=== PATIENT | male | born 1945 | race Caucasian/White ===

== ENCOUNTER → 2017-07-22 13:47 | Outpatient (CLI) | payer MEDICARE, OTHER, SELFPAY ==
[2017-07-22 15:15] LABS: Alanine Aminotransferase 41 IU/L (21-72); Albumin 4.3 g/dL (3.5-5.0); Albumin Globulin Ratio 1.4 (1.0-2.8); Alkaline Phosphatase 62 U/L (38-126); Aspartate Aminotransferase 28 IU/L (17-59); BUN Creatinine Ratio 21.1 (6-22); Bilirubin Total 0.9 mg/dL (0.2-1.3); Blood Urea Nitrogen 19 mg/dL (9-20); Calcium 9.2 mg/dL (8.4-10.2); Carbon Dioxide 26 mmol/L (22-32); Chloride 101 mmol/L (98-107); Estimated Glomerular Filt Rate > 60.0 mL/min (>60); Glucose 101 mg/dL (80-110); HEMOLYSIS < 15 (0-50); Potassium 3.9 mmol/L (3.4-5.1); Sodium 139 mmol/L (137-145); Total Protein 7.3 g/dL (6.3-8.2)
[2017-07-22 15:28] LABS: Thyroid Stimulating Hormone 2.36 uIU/mL (0.47-4.68)
== END ==
PROVIDERS: PCP Physician Assistant; Visit Provider Internal Medicine Cardiovascular Disease
DX: I48.0 Paroxysmal atrial fibrillation (principal)
CPT/HCPCS: 36415; 80053; 84443

== ENCOUNTER → 2017-10-03 14:08 | Outpatient (CLI) | payer MEDICARE, OTHER, SELFPAY ==
[2017-10-03 15:23] LABS: Add Manual Diff / Slide Review NO; Basophils Percent Auto 0.6 % (0-2); Eosinophils Percent Auto 3.4 % (2-4); Hematocrit 38.9 % (41-53); Hemoglobin 13.2 g/dL (13.5-17.5); Lymphocytes Percent Auto 12.3 % (25-40); Mean Corpuscular HGB Conc 33.9 % (30-36); Mean Corpuscular Hemoglobin 33.1 PG (26-34); Mean Corpuscular Volume 97.5 fL (80-100); Monocytes Percent Auto 10.2 % (3-14); Neutrophils Absolute Auto 5700 /uL (3000-5900); Neutrophils Percent Auto 73.5 % (50-75); Platelet Count 255 X10^3/uL (150-400); Red Cell Distribution Width 15.7 % (11.6-14.8); White Blood Cell Count 7.8 X10^3/uL (4.5-11.0)
[2017-10-03 16:04] LABS: BUN Creatinine Ratio 26.2 (6-22); Blood Urea Nitrogen 34 mg/dL (9-20); Calcium 9.6 mg/dL (8.4-10.2); Carbon Dioxide 38 mmol/L (22-32); Chloride 82 mmol/L (98-107); Glucose 112 mg/dL (80-110); HEMOLYSIS < 15 (0-50); Potassium 2.8 mmol/L (3.4-5.1); Sodium 134 mmol/L (137-145)
== END ==
PROVIDERS: PCP Physician Assistant; Visit Provider Physician Assistant
DX: I48.91 Unspecified atrial fibrillation (principal); E87.6 Hypokalemia; I25.10 Atherosclerotic heart disease of native coronary artery without angina pectoris; Z95.1 Presence of aortocoronary bypass graft
CPT/HCPCS: 36415; 80048; 85025

== ENCOUNTER → 2017-10-10 11:33 | Outpatient (CLI) | payer MEDICARE, OTHER, SELFPAY ==
[2017-10-10 12:17] LABS: BUN Creatinine Ratio 25.8 (6-22); Blood Urea Nitrogen 31 mg/dL (9-20); Calcium 9.7 mg/dL (8.4-10.2); Carbon Dioxide 34 mmol/L (22-32); Chloride 92 mmol/L (98-107); Estimated Glomerular Filt Rate 59.2 mL/min (>60); Glucose 104 mg/dL (80-110); HEMOLYSIS < 15 (0-50); Magnesium 1.8 mg/dL (1.6-2.3); Potassium 4.3 mmol/L (3.4-5.1); Sodium 137 mmol/L (137-145)
== END ==
PROVIDERS: PCP Physician Assistant; Visit Provider Internal Medicine
DX: E87.6 Hypokalemia (principal); I48.1 Persistent atrial fibrillation
CPT/HCPCS: 36415; 80048; 83735

== ENCOUNTER → 2017-10-16 15:12 | Outpatient (CLI) | payer MEDICARE, OTHER, SELFPAY ==
[2017-10-16 16:16] LABS: BUN Creatinine Ratio 16.7 (6-22); Blood Urea Nitrogen 20 mg/dL (9-20); Calcium 8.8 mg/dL (8.4-10.2); Carbon Dioxide 30 mmol/L (22-32); Chloride 97 mmol/L (98-107); Estimated Glomerular Filt Rate 59.2 mL/min (>60); Glucose 100 mg/dL (80-110); HEMOLYSIS < 15 (0-50); Potassium 3.9 mmol/L (3.4-5.1); Sodium 137 mmol/L (137-145)
== END ==
PROVIDERS: Family Provider Physician Assistant; PCP Physician Assistant; Visit Provider Physician Assistant
DX: I10 Essential (primary) hypertension (principal)
CPT/HCPCS: 36415; 80048

== ENCOUNTER → 2017-11-04 12:42 | Outpatient (CLI) | payer MEDICARE, OTHER, SELFPAY ==
[2017-11-04 13:59] LABS: Blood Urea Nitrogen 19 mg/dL (9-20); Calcium 9.4 mg/dL (8.4-10.2); Carbon Dioxide 31 mmol/L (22-32); Chloride 100 mmol/L (98-107); Estimated Glomerular Filt Rate > 60.0 mL/min (>60); Glucose 116 mg/dL (80-110); HEMOLYSIS < 15 (0-50); Magnesium 1.8 mg/dL (1.6-2.3); Potassium 4.5 mmol/L (3.4-5.1); Sodium 141 mmol/L (137-145)
== END ==
PROVIDERS: Family Provider Physician Assistant; PCP Physician Assistant; Visit Provider Physician Assistant
DX: I48.1 Persistent atrial fibrillation (principal)
CPT/HCPCS: 36415; 80048; 83735

== ENCOUNTER → 2018-09-11 15:42 | Outpatient (CLI) | payer MEDICARE, OTHER, SELFPAY ==
--- NOTE | 2018-09-11 | DI.RAD.S_ITS ---
PROCEDURE: XR HAND RT 2V INDICATIONS: arthritic changes TECHNIQUE: 2 views of the hand(s) acquired. COMPARISON: None. FINDINGS: Bones: No fractures or dislocations. Carpal bones are normally aligned. No suspicious bony lesions. Joint space narrowing and periarticular osteophyte formation at the scaphotrapezial and 1st carpometacarpal joints, indicating osteoarthritis. Soft tissues: No suspicious soft tissue calcifications. IMPRESSION: Osteoarthritis. No acute fracture. No osseous lesion. If symptoms and/or clinical suspicion for pathology persist, further assessment with repeat, or advanced imaging (e.g., CT, MRI, or bone scan) may be helpful for further assessment. Dictated by: Nelson Sherwood M.D. on 09/11/2018 at 17:06 Approved by: Nelson Sherwood M.D. on 09/11/2018 at 17:06
--- NOTE | 2018-09-11 | DI.RAD.S_ITS ---
PROCEDURE: XR HAND LT 2V INDICATIONS: arthritic changes TECHNIQUE: 2 views of the hand(s) acquired. COMPARISON: None. FINDINGS: Bones: No fractures or dislocations. Carpal bones are normally aligned. No suspicious bony lesions. Joint space narrowing and periarticular osteophyte formation at the scaphotrapezial and 1st metacarpal joints, indicating osteoarthritis. Soft tissues: No suspicious soft tissue calcifications. IMPRESSION: Osteoarthritis. No acute fracture. No osseous lesion. If symptoms and/or clinical suspicion for pathology persist, further assessment with repeat, or advanced imaging (e.g., CT, MRI, or bone scan) may be helpful for further assessment. Dictated by: Nelson Sherwood M.D. on 09/11/2018 at 17:05 Approved by: Nelson Sherwood M.D. on 09/11/2018 at 17:06
--- NOTE | 2018-09-11 | DI.RAD.S_ITS ---
PROCEDURE: XR SHOULDER LT MIN 2V INDICATIONS: decreased mobility TECHNIQUE: 3 views of the shoulder were acquired. COMPARISON: [facility], , SHOULDER MINIMUM 2 VIEW LEFT, 08/09/2016, 14:22. FINDINGS: Bones: No fractures or dislocations. No suspicious bony lesions. Visualized ribs appear intact. Tendon anchors within the humeral head. Median sternotomy. Aortic and osteophyte formation at the glenohumeral joint. Findings suggestive of distal clavicular resection. Soft tissues: No suspicious soft tissue calcifications. IMPRESSION: Post surgical sequelae. Osteoarthritis. No acute fracture. No osseous lesion. If symptoms and/or clinical suspicion for pathology persist, further assessment with repeat, or advanced imaging (e.g., CT, MRI, or bone scan) may be helpful for further assessment. Dictated by: Nelson Sherwood M.D. on 09/11/2018 at 17:06 Approved by: Nelson Sherwood M.D. on 09/11/2018 at 17:07
[2018-09-11 16:21] LABS: Add Manual Diff / Slide Review NO; Basophils Absolute Auto 100 /uL (0-100); Basophils Percent Auto 1.3 % (0-2); Eosinophils Absolute Auto 300 /uL (0-450); Eosinophils Percent Auto 6.2 % (2-4); Hematocrit 36.2 % (41-53); Hemoglobin 12.4 g/dL (13.5-17.5); Lymphocytes Absolute Auto 700 /uL (1100-4500); Lymphocytes Percent Auto 14.3 % (25-40); Mean Corpuscular HGB Conc 34.2 % (30-36); Mean Corpuscular Hemoglobin 33.8 PG (26-34); Mean Corpuscular Volume 98.8 fL (80-100); Monocytes Absolute Auto 500 /uL (0-900); Monocytes Percent Auto 9.4 % (3-14); Neutrophils Absolute Auto 3300 /uL (1500-7000); Neutrophils Percent Auto 68.8 % (50-75); Platelet Count 222 X10^3/uL (150-400); Red Blood Cell Count 3.66 X10^6/uL (4.5-5.9); Red Cell Distribution Width 15.6 % (11.6-14.8); White Blood Cell Count 4.8 X10^3/uL (4.5-11.0)
[2018-09-11 16:22] LABS: Reticulocyte Count, Percent 1.3 % (0.87-2.60)
[2018-09-11 16:38] LABS: B Type Natriuretic Peptide 173 (<100)
[2018-09-11 17:02] LABS: BUN Creatinine Ratio 22.2 (6-22); Blood Urea Nitrogen 20 mg/dL (9-20); C-Reactive Protein Quant 0.6 mg/dL (<1.0); Calcium 8.8 mg/dL (8.4-10.2); Carbon Dioxide 28 mmol/L (22-32); Chloride 101 mmol/L (98-107); Estimated Glomerular Filt Rate > 60.0 mL/min (>60); Glucose 100 mg/dL (80-110); HEMOLYSIS 15 (0-50); Sodium 137 mmol/L (137-145)
[2018-09-11 17:06] LABS: Erythrocyte Sedimentation Rate 13 MM/HR (0-15)
[2018-09-11 17:12] LABS: Rheumatoid Factor < 8.6 IU/mL (<12.0)
[2018-09-11 17:20] LABS: HEMOLYSIS < 15 (0-50); Iron 60 ug/dL (49-181)
[2018-09-11 17:30] LABS: Percent Iron Saturation 18 % (20-50); Total Iron Binding Capacity 326 ug/dL (261-462); Transferrin 258 mg/dL (206-381)
[2018-09-11 17:34] LABS: Ferritin 28.7 ng/mL (17.9-464)
[2018-09-15 11:47] LABS: CCP Antibody (IgG) < 16 Units (< 20)
== END ==
PROVIDERS: PCP Internal Medicine; Visit Provider Internal Medicine
DX: M18.0 Bilateral primary osteoarthritis of first carpometacarpal joints (principal); M25.512 Pain in left shoulder; D64.9 Anemia, unspecified; I50.9 Heart failure, unspecified
CPT/HCPCS: 36415; 73030; 73120; 80048; 82728; 83540; 83550; 83880; 85025; 85045; 85651; 86140; 86200; 86430

== ENCOUNTER → 2018-10-20 09:03 | Outpatient (CLI) | payer MEDICARE, OTHER, SELFPAY ==
--- NOTE | 2018-10-20 | DI.CT.S_ITS ---
PROCEDURE: CT CHEST WO CON INDICATIONS: STERNAL PAIN TECHNIQUE: Noncontrast 5 mm thick sections acquired from the pulmonary apices to the posterior costophrenic angles. 1 mm lung window, 5 mm thick coronal and sagittal and 7 mm axial MIP reformats were then acquired. For radiation dose reduction, the following was used: automated exposure control, adjustment of mA and/or kV according to patient size. COMPARISON: None. FINDINGS: Image quality: Excellent. Lungs and pleura: There is nodular thickening along left oblique fissure. With masslike consolidation is seen in lateral aspect of the left upper lobe measures 1.9 x 1.8 x 0.7 cm in size series 3 image 153 and series 5 image 43. The 6 mm calcified granuloma is noted in lateral aspect of right upper lobe series 3 image 132 5 mm nodular pleural thickening involving anterior aspect of right upper lobe is seen series 3 image 131. 5 mm subpleural nodule involving anterolateral aspect of right middle lobe is also noted series 3 image 167. 9 mm nodular pleural thickening involving the posterior aspect of left lower lobe near left lung base is seen series 3 image 191. Bibasilar scarring/atelectasis also seen. Subtle 6 mm in subpleural nodular density is seen in posterior aspect of right lung base series 3 image 242. No pleural effusions or pneumothorax. Central and peripheral airways are patent and normal in caliber. Mediastinum: Heart size is enlarged. No pericardial effusion. Median sternotomy wires are seen. Moderate amount of atherosclerotic calcifications are noted in coronary arteries and thoracic aorta. Median sternotomy wires skin MID to distal sternal region and appears fractured with diastases at sternotomy site . No mediastinal adenopathy by size criteria. Small calcified lymph nodes are seen in mediastinum. Thoracic aorta and central pulmonary arteries are normal in size. Esophagus is normal in caliber. No hiatal hernia. Bones and chest wall: No suspicious bony lesions. No vertebral body compression fractures. No axillary or supraclavicular adenopathy by size criteria. Thyroid gland is within normal limits. Abdomen: Visualized upper abdominal solid organs and bowel loops appear normal in the absence of contrast. Scattered calcified granuloma are seen in liver and spleen. Gallbladder is surgically absent IMPRESSION: 1. Prior cardiac surgery with median sternotomy wires seen. There are broken sternotomy wires the mid to distal sternal region with diastases at sternotomy site. No bony erosive changes. No acute fracture or dislocation. No abnormal fluid collection or soft tissue mass. 2. Nodular thickening along oblique fissure with masslike consolidation seen in lateral aspect of left upper lobe measures 1.9 x 1.8 x 0.7 cm in size. Additional subcentimeter nodular densities seen scattered in bilateral lung gonzalez as above. Followup CT study in 3-6 month is recommended for evaluation of stability. 3. Bibasilar atelectasis/scarring. No pleural effusion. Airway is patent. Dictated by: John Hermosillo M.D. on 10/20/2018 at 13:11 Approved by: John Hermosillo M.D. on 10/20/2018 at 13:23
== END ==
PROVIDERS: PCP Internal Medicine; Visit Provider Internal Medicine
DX: R07.89 Other chest pain (principal)
CPT/HCPCS: 71250

== ENCOUNTER → 2018-11-06 14:41 | Outpatient (CLI) | payer MEDICARE, OTHER, SELFPAY | PROVIDERS: PCP Internal Medicine; Visit Provider Internal Medicine | DX: M81.0 Age-related osteoporosis without current pathological fracture (principal); M96.89 Other intraoperative and postprocedural complications and disorders of the musculoskeletal system; Z87.891 Personal history of nicotine dependence | CPT/HCPCS: 77080 ==

== ENCOUNTER → 2018-11-19 11:10 | Outpatient (CLI) | payer MEDICARE, OTHER, SELFPAY ==
[2018-11-19 11:44] LABS: Add Manual Diff / Slide Review NO; Basophils Absolute Auto 0 /uL (0-100); Basophils Percent Auto 0.9 % (0-2); Eosinophils Absolute Auto 200 /uL (0-450); Eosinophils Percent Auto 5.2 % (2-4); Hematocrit 38.3 % (41-53); Hemoglobin 12.9 g/dL (13.5-17.5); Lymphocytes Absolute Auto 700 /uL (1100-4500); Lymphocytes Percent Auto 16.1 % (25-40); Mean Corpuscular HGB Conc 33.6 % (30-36); Mean Corpuscular Hemoglobin 33.4 PG (26-34); Mean Corpuscular Volume 99.2 fL (80-100); Monocytes Absolute Auto 400 /uL (0-900); Monocytes Percent Auto 8.4 % (3-14); Neutrophils Absolute Auto 3200 /uL (1500-7000); Neutrophils Percent Auto 69.4 % (50-75); Platelet Count 252 X10^3/uL (150-400); Red Blood Cell Count 3.86 X10^6/uL (4.5-5.9); Red Cell Distribution Width 14.8 % (11.6-14.8); White Blood Cell Count 4.6 X10^3/uL (4.5-11.0)
[2018-11-19 12:11] LABS: Alanine Aminotransferase 16 IU/L (21-72); Albumin 4.1 g/dL (3.5-5.0); Alkaline Phosphatase 55 U/L (38-126); Aspartate Aminotransferase 21 IU/L (17-59); BUN Creatinine Ratio 26.7 (6-22); Blood Urea Nitrogen 24 mg/dL (9-20); Calcium 9.2 mg/dL (8.4-10.2); Carbon Dioxide 28 mmol/L (22-32); Chloride 99 mmol/L (98-107); Cholesterol 115 mg/dL (140-199); Estimated Glomerular Filt Rate > 60.0 mL/min (>60); Glucose 105 mg/dL (80-110); HDL Cholesterol 49 mg/dL (40-60); HEMOLYSIS < 15 (0-50); LDL Cholesterol Calculated 50 mg/dL (<100); Potassium 3.9 mmol/L (3.4-5.1); Sodium 138 mmol/L (137-145); Triglycerides 80 mg/dL (35-150)
[2018-11-20 10:35] LABS: B Type Natriuretic Peptide 280 (<100)
== END ==
PROVIDERS: PCP Internal Medicine; Visit Provider Internal Medicine
DX: D64.9 Anemia, unspecified (principal); R79.9 Abnormal finding of blood chemistry, unspecified; E78.5 Hyperlipidemia, unspecified; I10 Essential (primary) hypertension; R73.01 Impaired fasting glucose; I42.0 Dilated cardiomyopathy; R79.89 Other specified abnormal findings of blood chemistry
CPT/HCPCS: 36415; 80048; 80061; 82040; 83880; 84075; 84450; 84460; 85025

== ENCOUNTER → 2021-12-25 10:24 | Outpatient (CLI) | payer OTHER, SELFPAY | PROVIDERS: PCP Internal Medicine; Referring Provider Internal Medicine; Visit Provider Internal Medicine | DX: M81.0 Age-related osteoporosis without current pathological fracture (principal); Z87.311 Personal history of (healed) other pathological fracture; Z79.83 Long term (current) use of bisphosphonates | CPT/HCPCS: 77080 ==

== ENCOUNTER → 2022-02-04 10:40 | Outpatient (CLI) | payer OTHER, SELFPAY ==
[2022-02-04 12:04] LABS: Add Manual Diff / Slide Review NO; Basophils Absolute Auto 0 /uL (0-100); Basophils Percent Auto 0.8 % (0-2); Eosinophils Absolute Auto 200 /uL (0-450); Eosinophils Percent Auto 4.3 % (2-4); Hematocrit 40.3 % (41-53); Hemoglobin 13.7 g/dL (13.5-17.5); Lymphocytes Absolute Auto 900 /uL (1100-4500); Lymphocytes Percent Auto 15.3 % (25-40); Mean Corpuscular HGB Conc 33.9 % (30-36); Mean Corpuscular Hemoglobin 33.5 PG (26-34); Mean Corpuscular Volume 98.6 fL (80-100); Monocytes Absolute Auto 700 /uL (0-900); Neutrophils Absolute Auto 3900 /uL (1500-7000); Neutrophils Percent Auto 67.6 % (50-75); Platelet Count 252 X10^3/uL (150-400); Red Blood Cell Count 4.08 X10^6/uL (4.5-5.9); Red Cell Distribution Width 15.2 % (11.6-14.8); White Blood Cell Count 5.8 X10^3/uL (4.5-11.0)
[2022-02-04 12:21] LABS: Alanine Aminotransferase 17 IU/L (<50); Albumin 4.2 g/dL (3.5-5.0); Albumin Globulin Ratio 1.4 (1.0-2.8); Alkaline Phosphatase 46 U/L (38-126); Aspartate Aminotransferase 26 IU/L (17-59); BUN Creatinine Ratio 24.3 (6-22); Bilirubin Total 0.8 mg/dL (0.2-1.3); Blood Urea Nitrogen 18 mg/dL (9-20); Calcium 9.4 mg/dL (8.4-10.2); Carbon Dioxide 29 mmol/L (22-32); Chloride 98 mmol/L (98-107); Estimated Glomerular Filt Rate > 60 mL/min (>60); Globulin 2.9 g/dL (1.7-4.1); Glucose 89 mg/dL (80-110); HEMOLYSIS < 15 (0-50); Potassium 4.2 mmol/L (3.4-5.1); Sodium 136 mmol/L (137-145); Total Protein 7.1 g/dL (6.3-8.2)
== END ==
PROVIDERS: PCP Internal Medicine; Referring Provider Internal Medicine; Visit Provider Internal Medicine
DX: R31.0 Gross hematuria (principal)
CPT/HCPCS: 36415; 80053; 85025

== ENCOUNTER → 2022-02-05 10:54 | Outpatient (CLI) | payer OTHER, SELFPAY ==
--- NOTE | 2022-02-05 | DI.CT.S_ITS ---
PROCEDURE: CT IVP A/P W/WO INDICATIONS: gross Hematuria TECHNIQUE: Optional 5 mm thick noncontrast images acquired from the diaphragm to the symphysis pubis. After the administration of intravenous contrast, 5 mm thick images acquired from the diaphragm to the symphysis pubis after a 10-minute delay. 2 mm thick coronal and sagittal reformats were then performed of the kidneys and ureters. For radiation dose reduction, the following was used: automated exposure control, adjustment of mA and/or kV according to patient size. COMPARISON: None. FINDINGS: Image quality: Excellent. Lung bases: Lung bases are clear. Four-chamber cardiomegaly. Pacemaker. Remote midline sternotomy. Urinary system: Right kidney: There are 2 upper pole stones in a calyx with extensive cortical atrophy immediately subjacent to each other measuring 12 mm and 7 mm respectively. Both stones have a Hounsfield measurement of greater than 1000. There is a nonobstructing 7 x 3 mm stone in the right renal pelvis. No masses. No hydronephrosis. Right ureter: 7 x 3 mm nonobstructing stone in the renal pelvis/UPJ region. Ureter is of normal caliber with normal appearance post contrast. Left kidney: There are 3 small nonobstructing stones. No hydronephrosis. No masses. Left ureter: Unremarkable. Other solid organs: Liver is normal in size and enhancement. Gallbladder is surgically absent. Biliary system is non dilated. Pancreas enhances normally. Spleen is normal in size and enhancement. Numerous calcified splenic granulomata. No adrenal nodules. Peritoneum and bowel: Bowel loops demonstrate normal wall thickness and caliber. No free fluid or air. Nodes and vessels: No retroperitoneal or mesenteric adenopathy by size criteria. Mild aneurysmal dilatation of the abdominal aorta, measuring 3.6 x 3.8 cm. Abdominal wall: No ventral hernias. Pelvis: No pathologic free pelvic fluid. No inguinal hernias or adenopathy. Bones: No suspicious bony lesions. No acute compression fractures. Remote percutaneous cement fixation of T10. IMPRESSION: 1. There are multiple bilateral nonobstructing renal stones, including a 12 mm and 7 mm right renal stone respectively. Hounsfield measurements of the 2 largest stones are greater than 1000. 2. There is a right renal pelvis/UPJ stone measuring 7 x 3 mm which is currently nonobstructing. There is no hydronephrosis. 3. No findings suspicious for malignancy. No hydronephrosis. A Dictated by: Josse Lance M.D. on 02/05/2022 at 19:08 Approved by: Josse Lance M.D. on 02/05/2022 at 19:15
== END ==
PROVIDERS: PCP Internal Medicine; Referring Provider Internal Medicine; Visit Provider Internal Medicine
DX: N20.2 Calculus of kidney with calculus of ureter (principal); R31.0 Gross hematuria
CPT/HCPCS: 74178; Q9967

== ENCOUNTER → 2024-01-30 14:04 | Outpatient (CLI) | payer MEDICARE, OTHER, SELFPAY ==
--- NOTE | 2024-01-30 14:07 | DI.RAD.S_ITS ---
PROCEDURE: XR KNEE LT 3V INDICATIONS: Contusion of left knee, initial encounter TECHNIQUE: 3 views of the knee were acquired. COMPARISON: [facility], , KNEE 1-2 VIEWS RIGHT, 01/11/2015, 11:24. FINDINGS: Bones: Mild demineralization. Moderate diffuse tricompartment joint space loss and marginal spur formation. No acute fracture or dislocation. No suspicious bone lesions. Soft tissues: No joint effusion. Moderate medial and lateral compartment chondrocalcinosis. Moderate peripheral arterial calcification. IMPRESSION: Tricompartment arthritic changes with prominent chondrocalcinosis in the medial and lateral compartments. No evidence of acute injury. Dictated by: Leanna Goodrich M.D. on 01/30/2024 at 21:32 Approved by: Leanna Goodrich M.D. on 01/30/2024 at 21:34
== END ==
PROVIDERS: PCP Family Medicine; Referring Provider Family Medicine; Visit Provider Family Medicine
DX: S80.02XA Contusion of left knee, initial encounter (principal); M11.262 Other chondrocalcinosis, left knee; X58.XXXA Exposure to other specified factors, initial encounter
CPT/HCPCS: 73562

== ENCOUNTER 2024-02-23 18:42 | Emergency (ER) | payer MEDICARE, OTHER, SELFPAY ==
[2024-02-23 18:46] VITALS: BP 144/83; PULSE 74; RESP 16; TEMP 36.3; O2SAT 92; BMI 36.0
--- NOTE | 2024-02-23 18:53 | DI.RAD.S_ITS ---
PROCEDURE: XR ANKLE LT MIN 3V INDICATIONS: injured lef tankle week ago, increase pain and swelling TECHNIQUE: 3 views of the ankle were acquired. COMPARISON: None. FINDINGS: Bones: No acute fractures or dislocations. Ankle mortise is normally aligned. No suspicious bony lesions. Degenerative changes of the tibiotalar joint and midfoot. Soft tissues: Very small anterior tibiotalar joint effusion. Soft tissue swelling overlying the ankle. Achilles tendon appears normal. IMPRESSION: Soft tissue swelling of the left ankle and small tibiotalar joint effusion without underlying fracture or dislocation. Degenerative changes of the tibiotalar joint and midfoot. If there are persistent symptoms or clinical suspicion for pathology, then repeat radiographs or advanced imaging (CT or MRI) may be considered for further evaluation. Dictated by: Matteo Malcolm M.D. on 02/23/2024 at 20:55 Approved by: Matteo Malcolm M.D. on 02/23/2024 at 20:56
--- NOTE | 2024-02-23 19:57 | ED_ITS ---
HPI - Extremity Injury (Lower) General Chief Complaint: Extremity Injury, Lower Stated Complaint: injured ankle Time Seen by Provider: 02/23/24 19:56 Source: patient, RN notes reviewed and old records reviewed Mode of arrival: Wheelchair Limitations: no limitations History of Present Illness HPI Narrative: 78-year-old male history of atrial fibrillation on Pradaxa, prior CABG, patient had sternotomy wires break and had to have revision, pacemaker, diabetes type 2, CHF who presents with complaint of left ankle pain and swelling. Patient states last Friday he was walking up the steps his son accidentally kicked him in the back of the leg causing his ankle to hit the edge of a step. Patient has had pain but it is increased in the last several days. It is become more painful and difficult to weightbear. Patient and family noticed bruising that is increased over the past several days. He has had a little bit more redness over the foot and anterior foot as well. They did not appreciate any lacerati ons or abrasions. It has not been warm. Patient does not have a history of gout. Patient has not had any other symptoms. He does have chronic dependent edema which they state has a little bit increased in the ankle but his foot and leg overall are about the same size. Related Data Home Medications Medication Instructions Recorded Confirmed furosemide 40 mg tablet 60 mg PO DAILY 03/10/18 06/23/18 metoprolol tartrate 37.5 mg tablet 37.5 mg PO BID 03/10/18 06/23/18 potassium chloride 10 mEq 10 meq PO DAILY 03/10/18 06/23/18 tablet,extended release Resmed Airsense 10 CPAP #1 ea 06/23/18 06/23/18 amiodarone 200 mg tablet 200 mg PO DAILY 06/23/18 06/23/18 atorvastatin 40 mg tablet 40 mg PO DAILY 06/23/18 06/23/18 bupropion HCl 150 mg 24 hr tablet, 150 mg PO QAM 06/23/18 06/23/18 extended release (Wellbutrin XL) cholecalciferol (vitamin D3) 50 2,000 unit PO DAILY 06/23/18 06/23/18 mcg (2,000 unit) capsule dabigatran etexilate 150 mg 150 mg PO BID 06/23/18 06/23/18 capsule (Pradaxa) docusate sodium 100 mg capsule 100 mg PO BID 06/23/18 06/23/18 metformin 500 mg tablet 500 mg PO BID 06/23/18 06/23/18 tamsulosin 0.4 mg capsule 0.4 mg PO DAILY 06/23/18 06/23/18 Previous Rx's Medication Instructions Recorded cephalexin 500 mg tablet 500 mg PO QID 7 days #28 tabs 02/23/24 Allergies Allergy/AdvReac Type Severity Reaction Status Date / Time No Known Drug Allergies Allergy Unverified 02/23/24 18:52 Review of Systems Review of Systems ROS Unobtainable: All systems reviewed & are unremarkable except as noted in HPI and below Patient History Medical History (Updated 02/23/24 @ 20:17 by Shae Chahal DO) Nocturnal hypoxemia History of active tuberculosis AAA (abdominal aortic aneurysm) without rupture History of poliomyelitis History of tuberculosis Osteopenia determined by x-ray Asthma Dyslipidemia Ischemic heart disease Seasonal allergies Allergic rhinitis Atrial fibrillation Obstructive sleep apnea of adult Primary insomnia Snoring Surgical History S/P CABG (coronary artery bypass graft) (~08/2017) Social History marital status: unmarried,living together details: to Soraya Hernandez household members: significant other and other lives independently: Yes caregiver/support person: No 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 RESPIRATORY: Breath sounds equal bilaterally, no wheezes rales or rhonchi. ABDOMEN: Soft, nontender. Normoactive bowel sounds all 4 quadrants. No guarding or rebound, rigidity, no mass : No CVA tenderness EXTREMITIES: Normal range of motion, patient has bilateral 2+ lower extremity edema, patient's left ankle he has some ecchymosis of the anterior ankle it is tender over the skin even with light touch and there is a little bit of increased erythema extending from the ankle and about midway up the anterior westfall. None appreciated over the dorsum of the foot. No open wounds, abrasions or scabs. Neurovascularly intact. Cap refills less than 2 seconds bilateral lower extremities. NEUROLOGICAL: Cranial nerves II through XII grossly intact. Moving all extremities SKIN: Warm, dry, no petechiae, no rashes or lesions. Initial Vital Signs Initial Vital Signs: Vital Signs Temperature 97.3 F L 02/23/24 18:46 Pulse Rate 74 02/23/24 18:46 Respiratory Rate 16 02/23/24 18:46 Blood Pressure 144/83 H 02/23/24 18:46 Pulse Oximetry 92 02/23/24 18:46 Oxygen Delivery Method Room Air 02/23/24 18:46 Course Orders Ordered: ED Orders 02/23/24 18:53 XR ankle LT min 3V Stat Vital Signs Vital signs: Vital Signs - 8 hr 02/23/24 21:00 Pulse Rate 65 Respiratory Rate 16 Blood Pressure 135/78 Pulse Oximetry 98 Oxygen Delivery Method Room Air MDM - Extremity Injury (Lower) Imaging Data Extremity x-ray #1: Radiologist's Impression: [address] [address] XRay Report Signed Patient: Bruno Hernandez Jr MR#: [id number] : 1945 Acct:[id number] Age/Sex: 78 / M Date of Service: 02/23/24 Loc: ED Accession Number: [id number] Procedure: XR ankle LT min 3V Ordering Provider: Shae Chahal D.O. PROCEDURE: XR ANKLE LT MIN 3V INDICATIONS: injured lef tankle week ago, increase pain and swelling TECHNIQUE: 3 views of the ankle were acquired. COMPARISON: None. FINDINGS: Bones: No acute fractures or dislocations. Ankle mortise is normally aligned. No suspicious bony lesions. Degenerative changes of the tibiotalar joint and midfoot. Soft tissues: Very small anterior tibiotalar joint effusion. Soft tissue swelling overlying the ankle. Achilles tendon appears normal. IMPRESSION: Soft tissue swelling of the left ankle and small tibiotalar joint effusion without underlying fracture or dislocation. Degenerative changes of the tibiotalar joint and midfoot. If there are persistent symptoms or clinical suspicion for pathology, then repeat radiographs or advanced imaging (CT or MRI) may be considered for further evaluation. Dictated by: Matteo Malcolm M.D. on 02/23/2024 at 20:55 Approved by: Matteo Malcolm M.D. on 02/23/2024 at 20:56 [facility] Narrative Medical decision making narrative: 78-year-old male with traumatic injury to his right ankle struck on in the edge of the step moving forward. Has developed some bruising but also some redness over that area as well no obvious scratches or abrasions. Patient is tender to touch even lightly over the skin. Does not really have any bony tenderness. patient had ankle xray which shows soft tissue swelling left ankle small tibiotalar joint effusion without underlying fracture or dislocation degenerative changes of the joint and midfoot. Discussed placing patient in a walking boot but he defers. He was able to ambulate here in the department and so we will continue to weightbear as tolerated. Patient have some erythema over the site we will go ahead and treat for potential cellulitis although pain may femur really did ecchymosis irritation to the joint. Does not history gout she was doing more painful skin and joint itself. Discharge Plan Departure Patient Disposition: Home Clinical Impression: Ankle pain, left Activity Restrictions/Additional Instructions: Your imaging does show a small tibiotalar joint effusion no obvious underlying fracture or dislocation, if you are having persistent symptoms please follow up for repeat imaging in the next week. Weight-bearing as tolerated. Please call to set up a follow up with your physician. Prescription for antibiotic for potential cellulitis is included in your paperwork. Prescription sent to [facility] in [place]. Please return for fevers increasing redness or swelling, rapidly worsening pain, new numbness, tingling or weakness or other new or concerning changes. Prescriptions: New cephalexin 500 mg tablet 500 mg PO QID 7 Days Qty: 28 0RF No Action furosemide 40 mg tablet 60 mg PO DAILY potassium chloride 10 mEq tablet extended release 10 meq PO DAILY metoprolol tartrate 37.5 mg tablet 37.5 mg PO BID amiodarone 200 mg tablet 200 mg PO DAILY Pradaxa 150 mg capsule 150 mg PO BID metformin 500 mg tablet 500 mg PO BID bupropion HCl [Wellbutrin XL] 150 mg tablet extended release 24 hr 150 mg PO QAM atorvastatin 40 mg tablet 40 mg PO DAILY tamsulosin 0.4 mg capsule 0.4 mg PO DAILY cholecalciferol (vitamin D3) 2,000 unit capsule 2,000 unit PO DAILY docusate sodium 100 mg capsule 100 mg PO BID (DME) Resmed Airsense 10 CPAP Qty: 1 Dose Instruction: As directed Patient Comments: Pressure: 12-20 cmH2O DME: [facility] Instructions: As directed Referrals: Jeremy Duron MD [Primary Care Provider] - Stand Alone Forms: Patient Portal/API/Survey
[2024-02-23 21:00] VITALS: BP 135/78; PULSE 65; RESP 16; O2SAT 98
== END 2024-02-23 21:29 | disposition home or self-care (01) ==
PROVIDERS: Emergency Provider Emergency Medicine; PCP Family Medicine
DX: M25.572 Pain in left ankle and joints of left foot (principal)
CPT/HCPCS: 73610; 99281; 99283

== ENCOUNTER → 2024-12-08 13:33 | Outpatient (CLI) | payer MEDICARE, OTHER, SELFPAY ==
--- NOTE | 2024-12-08 13:34 | DI.RAD.S_ITS ---
PROCEDURE: XR DEXA AXIAL SKELETON INDICATIONS: Osteoporosis Screening COMPARISON: [facility], CR, XR DEXA AXIAL SKELETON, 12/25/2021, 11:47. FINDINGS: Lumbar Spine: Bone mineral density 0.893 (previously 0.747) g/cm2, T score -1.9 (previously -3.2). Left Femoral Neck: Bone mineral density 0.568 (previously 0.545) g/cm2, T score -2.5 (previously -2.7). Left Hip: Bone mineral density 0.771 (previously 0.821) g/cm2, T score -1.4 (previously -1.0). Left Forearm: Bone mineral density 0.681 g/cm2, T score -0.2. Fracture Risk Calculation (when applicable): 10-year fracture risk of a major osteoporotic fracture 15 percent and of a hip fracture 6.4 percent. (T score greater or equal to -1.0 to: NORMAL) (T score from -1.1 to -2.4: OSTEOPENIA) (T score less than or equal to -2.5: OSTEOPOROSIS) IMPRESSION: Osteoporosis--- recommend repeat DEXA in 2 years or less for reassessment of response to treatment. Follow-up guidelines as follows: Osteoporosis: Consider a repeat DEXA and Vertebral Fracture Assessment (VFA) exam in 2 years or sooner if medically necessary, to reassess this patient's status. Osteopenia: Consider a repeat DEXA in 2-3 years to reassess this patient's status, or if there is a new clinical indication. Normal: Consider a repeat DEXA in 5 years or sooner, or if there is a new clinical indication. All treatment decisions require clinical judgment and consideration of individual patient factors, including patient preferences, comorbidities, previous drug use, risk factors not captured in the FRAX model (e.g., frailty, falls, vitamin D deficiency, increased bone turnover, interval significant decline in bone density ) and possible under- or over-estimation of fracture risk by FRAX. In addition, the NOF Guide recommends that FDA-approved medical therapies be considered in postmenopausal women and men age >= 50 years with a: * Hip or vertebral (clinical or morphometric) fracture * T-score of <=-2.5 at the spine or hip * Ten-year fracture probability by FRAX of >= 3% for hip fracture or >=20% for major osteoporotic fracture. Dictated by: William Nguyen M.D. on 12/08/2024 at 15:53 Approved by: William Nguyen M.D. on 12/08/2024 at 15:57
== END ==
LOC: RAD 13:33
PROVIDERS: PCP Family Medicine; Referring Provider Family Medicine; Visit Provider Family Medicine
DX: M81.0 Age-related osteoporosis without current pathological fracture (principal)
CPT/HCPCS: 77080; 77081

== ENCOUNTER → 2025-02-04 15:29 | Outpatient (CLI) | payer MEDICARE, OTHER, SELFPAY ==
--- NOTE | 2025-02-04 | DI.RAD.S_ITS ---
PROCEDURE: XR CHEST FOR PICC 1V INDICATIONS: PICC LINE PLACEMENT TECHNIQUE: One view of the chest was acquired. COMPARISON: [facility], CR, PICC LINE INSERTION, 01/25/2025, 17:29. [facility], CR, XR CHEST 1 VIEW, 01/25/2025, 18:31. [facility], CR, CHEST 1 VIEW, 06/12/2016, 20:08. FINDINGS: Suboptimal positioning despite repeat attempts. Surgical changes and devices: -Right-sided PICC with the catheter tip at the cavoatrial junction. Tip location is advanced compared to 01/25/2025. -Left pacemaker. -Post median sternotomy and CABG. -Prior vertebroplasty. -Left shoulder anchors. Lungs and pleura: No consolidation identified. No pleural effusions or pneumothorax. Mediastinum: Mediastinal contours appear grossly similar. Heart size appears prominent. Bones and chest wall: No suspicious bony lesions. Overlying soft tissues appear unremarkable. IMPRESSION: 1. Right-sided PICC with the catheter tip at the cavoatrial junction. 2. No pneumothorax. No consolidation identified. Dictated by: David Grande M.D. on 02/04/2025 at 17:21 Approved by: David Grande M.D. on 02/04/2025 at 17:25
== END ==
PROVIDERS: PCP Hospitalist; Referring Provider Hospitalist; Visit Provider Registered Nurse
DX: Z45.2 Encounter for adjustment and management of vascular access device (principal); B95.62 Methicillin resistant Staphylococcus aureus infection as the cause of diseases classified elsewhere
CPT/HCPCS: 36573

== ENCOUNTER → 2025-02-07 07:40 | Outpatient (ROUT) | payer MEDICARE, OTHER, SELFPAY | PROVIDERS: PCP Hospitalist; Visit Provider Registered Nurse | DX: R78.81 Bacteremia (principal); A49.02 Methicillin resistant Staphylococcus aureus infection, unspecified site | CPT/HCPCS: 80202 ==

== ENCOUNTER → 2025-02-10 08:51 | Outpatient (ROUT) | payer MEDICARE, OTHER, SELFPAY | LOC: LAB 08:51 | PROVIDERS: PCP Hospitalist; Visit Provider Registered Nurse | DX: R78.81 Bacteremia (principal); A49.02 Methicillin resistant Staphylococcus aureus infection, unspecified site | CPT/HCPCS: 80202 ==

== ENCOUNTER 2025-02-11 17:38 | Emergency (ER) | payer MEDICARE, OTHER, SELFPAY ==
[2025-02-11 17:44] VITALS: BP 125/74; PULSE 72; RESP 18; O2SAT 96
[2025-02-11 17:53] VITALS: BP 125/74; PULSE 70; RESP 18; TEMP 36.6; O2SAT 93; BMI 30.9
[2025-02-11 18:00] VITALS: BP 123/76; PULSE 69; O2SAT 97
--- NOTE | 2025-02-11 18:08 | ED.TRAUMA ---
HPI - Trauma <Otilia Parker PA-C - Last Filed: 02/11/25 18:39> General Chief Complaint: Extremity Injury, Upper Stated Complaint: pulled picc line out Time Seen by Provider: 02/11/25 17:40 Source: patient and EMS Mode of arrival: EMS History of Present Illness HPI narrative: Mr. David Garcia he is a very pleasant 79-year-old male with a past medical history of MRSA bacteremia currently on 1 g vancomycin q.12 hours until 02/27/2025, COPD on 2L NC, metabolic encephalopathy, UTI, pacemaker, opioid dependence, HTN, HLD, AFib, T2 dm, CHF, PVD who presents to the emergency department via EMS from [facility] after accidentally pulling out his right upper arm PICC line. Patient was treated at [facility] and discharged with a right upper extremity PICC line for his vancomycin infusions. Apparently sometime today got accidentally pulled out. He was sent here to have a new PICC line placed. Unfortunately we do not have staff to place a PICC line available at this time. Patient has no complaints, no symptoms, no fevers, all vital signs stable. Related Data Home Medications ?Medication ?Instructions ?Recorded ?Confirmed furosemide 40 mg tablet 60 mg PO DAILY 03/10/18 06/23/18 metoprolol tartrate 37.5 mg tablet 37.5 mg PO BID 03/10/18 06/23/18 potassium chloride 10 mEq 10 meq PO DAILY 03/10/18 06/23/18 tablet,extended release Resmed Airsense 10 CPAP #1 ea 06/23/18 06/23/18 amiodarone 200 mg tablet 200 mg PO DAILY 06/23/18 06/23/18 atorvastatin 40 mg tablet 40 mg PO DAILY 06/23/18 06/23/18 bupropion HCl 150 mg 24 hr tablet, 150 mg PO QAM 06/23/18 06/23/18 extended release (Wellbutrin XL) cholecalciferol (vitamin D3) 50 2,000 unit PO DAILY 06/23/18 06/23/18 mcg (2,000 unit) capsule dabigatran etexilate 150 mg 150 mg PO BID 06/23/18 06/23/18 capsule (Pradaxa) docusate sodium 100 mg capsule 100 mg PO BID 06/23/18 06/23/18 metformin 500 mg tablet 500 mg PO BID 06/23/18 06/23/18 tamsulosin 0.4 mg capsule 0.4 mg PO DAILY 06/23/18 06/23/18 Allergies Allergy/AdvReac Type Severity Reaction Status Date / Time No Known Drug Allergies Allergy Verified 02/11/25 17:53 Review of Systems <Otilia Parker PA-C - Last Filed: 02/11/25 18:39> Review of Systems ROS Unobtainable: All systems reviewed & are unremarkable except as noted in HPI and below Patient History <Otilia Parker PA-C - Last Filed: 02/11/25 18:39> Medical History Nocturnal hypoxemia History of active tuberculosis AAA (abdominal aortic aneurysm) without rupture History of poliomyelitis History of tuberculosis Osteopenia determined by x-ray Asthma Dyslipidemia Ischemic heart disease Seasonal allergies Allergic rhinitis Atrial fibrillation Obstructive sleep apnea of adult Primary insomnia Snoring Surgical History S/P CABG (coronary artery bypass graft) (~08/2017) Social History marital status: unmarried,living together details: yvette Hernandez household members: significant other and other lives independently: Yes caregiver/support person: No 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 Chronically ill-appearing patient, in no acute distress. HEAD: Atraumatic. Normocephalic. EYES: No scleral icterus. No injection or drainage. NECK: Trachea midline. Cervical ROM intact. CARDIOVASCULAR: Regular rate RESPIRATORY: ?On nasal cannula oxygen. Nonlabored respirations. ?Speaking in clear, full sentences. NEURO: Alert, answers questions appropriately, unable to recall specific details such as his antibiotic name SKIN: Right upper extremity PICC line site evaluated reveals no bleeding, no erythema, no increased warmth or drainage. Initial Vital Signs Initial Vital Signs: Vital Signs Pulse Rate 72 02/11/25 17:44 Respiratory Rate 18 02/11/25 17:44 Blood Pressure 125/74 02/11/25 17:44 Pulse Oximetry 96 02/11/25 17:44 Oxygen Delivery Method Nasal Cannula 02/11/25 17:44 Oxygen Flow Rate 2 02/11/25 17:44 <Quoc Jaffe MD - Last Filed: 02/11/25 19:50> Initial Vital Signs Initial Vital Signs: Vital Signs Pulse Rate 72 02/11/25 17:44 Respiratory Rate 18 02/11/25 17:44 Blood Pressure 125/74 02/11/25 17:44 Pulse Oximetry 96 02/11/25 17:44 Oxygen Delivery Method Nasal Cannula 02/11/25 17:44 Oxygen Flow Rate 2 02/11/25 17:44 Course <Otilia Parker PA-C - Last Filed: 02/11/25 18:39> Vital Signs Vital signs: Vital Signs - 8 hr 02/11/25 17:44 02/11/25 17:44 02/11/25 17:53 Temperature 97.8 F Pulse Rate 72 70 Respiratory Rate 18 18 Blood Pressure 125/74 125/74 Pulse Oximetry 96 93 Oxygen Delivery Method Nasal Cannula Nasal Cannula Oxygen Flow Rate 2 2 02/11/25 18:00 02/11/25 18:00 02/11/25 18:30 Temperature Pulse Rate 69 Respiratory Rate Blood Pressure 123/76 128/74 Pulse Oximetry 97 Oxygen Delivery Method Oxygen Flow Rate 02/11/25 18:30 Temperature Pulse Rate 70 Respiratory Rate Blood Pressure Pulse Oximetry 97 Oxygen Delivery Method Oxygen Flow Rate <Quoc Jaffe MD - Last Filed: 02/11/25 19:50> Vital Signs Vital signs: Vital Signs - 8 hr 02/11/25 17:44 02/11/25 17:44 02/11/25 17:53 Temperature 97.8 F Pulse Rate 72 70 Respiratory Rate 18 18 Blood Pressure 125/74 125/74 Pulse Oximetry 96 93 Oxygen Delivery Method Nasal Cannula Nasal Cannula Oxygen Flow Rate 2 2 02/11/25 18:00 02/11/25 18:00 02/11/25 18:30 Temperature Pulse Rate 69 Respiratory Rate Blood Pressure 123/76 128/74 Pulse Oximetry 97 Oxygen Delivery Method Oxygen Flow Rate 02/11/25 18:30 Temperature Pulse Rate 70 Respiratory Rate Blood Pressure Pulse Oximetry 97 Oxygen Delivery Method Oxygen Flow Rate [facility] - Trauma <Otilia Parker PA-C - Last Filed: 02/11/25 18:39> Medical Records Attestation: I reviewed the patient's medical records. Medical records narrative: Printed records from [facility] Narrative Medical decision making narrative: 79-year-old male with a past medical history of MRSA bacteremia currently on 1 g vancomycin q.12 hours until 02/27/2025, COPD on 2L NC, metabolic encephalopathy, UTI, pacemaker, opioid dependence, HTN, HLD, AFib, T2DM, CHF, PVD who presents to the emergency department via EMS from [facility] after accidentally pulling out his right upper arm PICC line. Differential diagnosis includes but is not limited to accidental PICC line removal, need for intravenous access, etc. On exam patient is in no acute distress, nontoxic-appearing, all vital signs within normal limits. He has no concerns he is here to have his PICC line replaced. Unfortunately we do not have the ability to place a PICC line today however 2 peripheral IVs were placed so that he can continue to receive his vancomycin q.12 hours over the weekend at his rehab facility. He was provided with the phone number to call diagnostic imaging to schedule an appointment to have a PICC line placed. Reviewed ER return precautions. Nurse report called to [facility]. He is stable for transfer back to his facility <Quoc Jaffe MD - Last Filed: 02/11/25 19:50> [facility] Narrative Medical decision making narrative: 79-year-old male with a past medical history of MRSA bacteremia currently on 1 g vancomycin q.12 hours until 02/27/2025, COPD on 2L NC, metabolic encephalopathy, UTI, pacemaker, opioid dependence, HTN, HLD, AFib, T2DM, CHF, PVD who presents to the emergency department via EMS from [facility] after accidentally pulling out his right upper arm PICC line. Differential diagnosis includes but is not limited to accidental PICC line removal, need for intravenous access, etc. On exam patient is in no acute distress, nontoxic-appearing, all vital signs within normal limits. He has no concerns he is here to have his PICC line replaced. Unfortunately we do not have the ability to place a PICC line today however 2 peripheral IVs were placed so that he can continue to receive his vancomycin q.12 hours over the weekend at his rehab facility. He was provided with the phone number to call diagnostic imaging to schedule an appointment to have a PICC line placed. Reviewed ER return precautions. Nurse report called to [facility]. He is stable for transfer back to his facility. I was present and available for consult on this patient but did not interface with the patient or examine them. I consulted with CHRISTOPHER Parker regarding replacement of PICC line versus IV placement and follow up appointment for PICC line. Discharge Plan Departure Patient Disposition: Home Clinical Impression: Adjustment and management of vascular access device Instructions: DI for Bacteremia-Adult Activity Restrictions/Additional Instructions: Dear Mr. David Garcia, I am very sorry that your PICC line got accidentally removed. We do not have the ability to place a PICC line today in the ER, it is very important that your rehab staff call [facility] Imaging scheduling first thing Friday to get you scheduled for a new PICC line. We have placed 2 IV lines which can be used for your antibiotics over the weekend. [facility] Scheduling phone number: [phone] Please follow up with your primary care doctor within the next 2-3 days for ER follow-up. (If you do not have a PCP you can call [phone]. ?to schedule an appointment with an [facility] Primary Care Provider) IF YOU DEVELOP ANY NEW OR WORSENING SYMPTOMS, RETURN TO THE ER! Please read the attached instructions, they highlight more specific treatments and interventions for you at home. Thank you for letting me participate in your care, Otilia Parker PA-C Prescriptions: No Action furosemide 40 mg tablet 60 mg PO DAILY potassium chloride 10 mEq tablet extended release 10 meq PO DAILY metoprolol tartrate 37.5 mg tablet 37.5 mg PO BID amiodarone 200 mg tablet 200 mg PO DAILY Pradaxa 150 mg capsule 150 mg PO BID metformin 500 mg tablet 500 mg PO BID bupropion HCl [Wellbutrin XL] 150 mg tablet extended release 24 hr 150 mg PO QAM atorvastatin 40 mg tablet 40 mg PO DAILY tamsulosin 0.4 mg capsule 0.4 mg PO DAILY cholecalciferol (vitamin D3) 2,000 unit capsule 2,000 unit PO DAILY docusate sodium 100 mg capsule 100 mg PO BID (DME) Resmed Airsense 10 CPAP Qty: 1 Dose Instruction: As directed Patient Comments: Pressure: 12-20 cmH2O DME: [facility] Instructions: As directed Referrals: Chance Cuenca MD [Primary Care Provider, Internal Medicine] Stand Alone Forms: Patient Portal/API
[2025-02-11 18:30] VITALS: BP 128/74; PULSE 70; O2SAT 97
--- NOTE | 2025-02-11 18:36 | PC.NURSE ---
RN-to-RN report called to IVIS Cline from [facility] at [phone]. Discussed placing bilateral 18G on pt's forearm to allow for continuation of IV abx treatment. Referral for PICC line placement provided and highlighted in discharge paperwork. RN states understanding and confirms she will call provided number on Friday for procedure. Provider [place] notified.
[2025-02-11 19:57] VITALS: BP 132/72; PULSE 70; RESP 20; O2SAT 90
== END 2025-02-11 20:10 | disposition home or self-care (01) ==
PROVIDERS: Emergency Provider Physician Assistant; PCP Hospitalist
DX: Z45.2 Encounter for adjustment and management of vascular access device (principal); I10 Essential (primary) hypertension; E11.9 Type 2 diabetes mellitus without complications
CPT/HCPCS: 99284

== ENCOUNTER → 2025-02-18 10:28 | Outpatient (ROUT) | payer SELFPAY | PROVIDERS: Visit Provider Registered Nurse | DX: R78.81 Bacteremia (principal); B95.62 Methicillin resistant Staphylococcus aureus infection as the cause of diseases classified elsewhere | CPT/HCPCS: 80202 ==